=== PATIENT | male | born 1965 | race Two or more races ===

== ENCOUNTER 2024-05-31 09:06 | Emergency (ER) | payer OTHER, SELFPAY ==
[2024-05-31 09:25] VITALS: BP 166/85; PULSE 97; RESP 16; TEMP 36.6; O2SAT 100
[2024-05-31 10:04] VITALS: BP 148/80; PULSE 90; RESP 16; TEMP 36.6; O2SAT 100
--- NOTE | 2024-05-31 10:39 | ED.SKABFB ---
HPI - Skin/Abscess/Foreign Bdy General Chief complaint: Skin/Abscess/Foreign Body Stated complaint: groin abscess Time Seen by Provider: 05/31/24 09:54 Source: patient Mode of arrival: ambulatory Limitations: no limitations History of Present Illness HPI narrative: Patient is a 58-year-old male who presents the ED with report report of an abscess to his left groin. Patient reports he noticed an area of swelling and irritation to his left inguinal region around 1 week ago. States it has continued to increase in size and become more tender. He has history of a similar abscess in his right groin several years ago which required surgery. Patient is a diabetic. Does not routinely check his blood sugars. Denies any fevers, chills, testicular pain or swelling, penile drainage. Related Data Allergies Allergy/AdvReac Type Severity Reaction Status Date / Time No Known Allergies Allergy Verified 05/31/24 09:08 Review of Systems Review of Systems: All systems reviewed & are unremarkable except as noted in HPI. All systems reviewed & are unremarkable except as noted in HPI and below Exam Narrative: GENERAL: Well appearing, obese with BMI of 34.9, non-toxic, in no acute distress. HEAD: Normocephalic, atraumatic. RESPIRATORY: Airway patent, respirations nonlabored. CARDIOVASCULAR: Regular rate and rhythm MUSCULOSKELETAL: Moves all extremities. No gross deformities. SKIN: Warm, dry, normal color. Focal circumcised area of induration and skin inflammation to mid left inguinal region. There is central fluctuance that is very easily palpable. Focal tenderness to palpation. No surrounding erythema extending into the perineal region. No swelling or erythema of scrotum. Normal palpation of femoral artery, several cm above abscessed region. NEURO: A&O X3. Speech clear. No ataxic movements. PSYCHIATRIC: Appropriate mood and affect. Normal interaction. Course Vital Signs Vital signs: Vital Signs Temperature 97.9 F 05/31/24 09:25 Pulse Rate 97 05/31/24 09:25 Respiratory Rate 16 05/31/24 09:25 Blood Pressure 166/85 H 05/31/24 09:25 Pulse Oximetry 100 05/31/24 09:25 Temperature 97.8 F 05/31/24 10:04 Pulse Rate 92 05/31/24 11:39 Respiratory Rate 18 05/31/24 11:39 Blood Pressure 145/78 H 05/31/24 11:39 Pulse Oximetry 100 05/31/24 11:39 Procedures Abscess I/D other: Date of Incision: 05/31/24 Time of Incision: 12:05 Side (if applicable): left (inguinal region) Sedation/analgesia: none Local Anesthetic: lidocaine 1% Amount of anesthesia used (mL): 5 Technique: incised with #11 blade and probed loculations Amount of fluid expressed (mL): 10 Irrigation: Yes Packing used?: plain I&D Results: Pus and Blood Complications: other (none) MDM - Skin/Abscess/Foreign Bdy MDM Narrative Medical decision making narrative: Exam consistent with focal abscess to left inguinal region. Bedside US utilized by myself to visualize large subq fluid collection. I&D performed in the ED. Packing was placed. Wound culture obtained and sent. Patient tolerated procedure well. Started on Bactrim. Laboratory studies were obtained and without leukocytosis. He does have hyperglycemia on BMP. Patient is a known diabetic. On metformin. States he does not routinely check his sugars. There is no evidence of DKA at this time. Was advised to follow closely with PCP for further blood sugar management. Discussed further wound care and management of abscess. Discussed packing instructions. Discussed return precautions. Patient in agreement with plan. Discharged in stable condition. Medical Records Attestation: I reviewed the patient's medical records. Lab Data Attestation: I reviewed the patient's lab results. 05/31/24 10:40 05/31/24 10:40 Labs: Lab Results 05/31/24 Range/Units 10:40 WBC 8.0 (4.5-10.0) K/mm3 RBC 4.29 L (4.6-6.20) M/mm3 Hgb 13.7 L (14.0-18.0) g/dL Hct 39.5 L (42.0-52.0) % MCV 92.1 (80-100) fl MCH 31.9 (26-34) pg MCHC 34.7 (32-36) g/dl RDW 13.1 (11.5-14.5) % Plt Count 236 (150-375) k/mm3 MPV 11.5 H (7.4-10.4) fl Immature Gran % (Auto) 0.2 (0-0.5) % Neut % (Auto) 67.2 (45.5-73.1) % Lymph % (Auto) 26.7 (18.3-44.2) % [place] % (Auto) 4.1 (2.6-8.5) % Eos % (Auto) 1.2 (0-4.4) % Baso % (Auto) 0.6 (0.2-1.2) % Lymph # (Auto) 2.14 (0.9-3.2) K/mm3 [place] # (Auto) 0.3 (0.1-0.6) K/mm3 Eos # (Auto) 0.1 (0-0.3) K/mm3 Baso # (Auto) 0.1 (0.0-0.1) K/mm3 Abs Immat Gran (auto) 0.02 (0.00-0.031) K/mm3 Absolute Neuts (auto) 5.4 (1.3-6.7) K/mm3 Absolute Nucleated RBC 0.000 (0.0-0.012) K/mm3 Nucleated RBC % 0.0 (0.0-0.2) % Sodium 141 (137-145) mmol/L Potassium 4.2 (3.4-5.0) mmol/L Chloride 103 (98-107) mmol/L Carbon Dioxide 27 (22-30) mmol/L Anion Gap 11 (4-12) mmol/L BUN 12 (9-20) mg/dL Creatinine 0.51 L (0.7-1.3) mg/dL Estim Creat Clear Calc 150 ml/min Estimated GFR > 60 (59 - ) Glucose 350 H (65-110) mg/dL Calcium 8.8 (8.4-10.2) mg/dL Discharge Plan Discharge Clinical Impression: Abscess of left groin, Diabetes mellitus with hyperglycemia Patient Disposition: Home, Self-Care Condition: Stable Instructions: Antibiotic Form, Abscess (ED), Abscess Incision and Drainage (DC), Type 2 Diabetes Management for Adults (ED) Additional Instructions: Allow packing to fall out on its own over the next couple of days. If it does not fall out in 3 days, you may remove this yourself by gently pulling on the tail string. Take antibiotics as prescribed. Follow-up with primary care doctor for further evaluation and continued management of your diabetes. Continue your home metformin. Return to the ED if you experience worsening or severe symptoms, recurrent abscess formation, unable to keep down food or drink, persistent fevers, or any other symptoms of concern. Patient Language: Icelandic Prescriptions: New sulfamethoxazole-trimethoprim [Bactrim DS] 800-160 mg tablet 1 tablet PO Q12H 7 Days Qty: 14 0RF Follow-up/Referrals: Micah Fall MD [Physician] - (PRIMARY CARE) UNKNOWN,DOCTOR [Primary Care Provider] - Stand Alone Forms: Work/School Release IP Time of Disposition: 12:19
[2024-05-31 10:44] LABS: Basophils Absolute Auto 0.1 K/mm3 (0.0-0.1); Basophils Percent Auto 0.6 % (0.2-1.2); Eosinophils Absolute Auto 0.1 K/mm3 (0-0.3); Eosinophils Percent Auto 1.2 % (0-4.4); Hematocrit 39.5 % (42.0-52.0); Hemoglobin 13.7 g/dL (14.0-18.0); Immature Granulocyte Absolute 0.02 K/mm3 (0.00-0.031); Immature Granulocyte Percent A 0.2 % (0-0.5); Lymphocytes Absolute Auto 2.14 K/mm3 (0.9-3.2); Lymphocytes Percent Auto 26.7 % (18.3-44.2); Mean Corpuscular HGB Conc 34.7 g/dl (32-36); Mean Corpuscular Hemoglobin 31.9 pg (26-34); Mean Corpuscular Volume 92.1 fl (80-100); Mean Platelet Volume 11.5 fl (7.4-10.4); Monocytes Absolute Auto 0.3 K/mm3 (0.1-0.6); Monocytes Percent Auto 4.1 % (2.6-8.5); Neutrophils Absolute Auto 5.4 K/mm3 (1.3-6.7); Neutrophils Percent Auto 67.2 % (45.5-73.1); Platelet Count Result 236 k/mm3 (150-375); Red Blood Count 4.29 M/mm3 (4.6-6.20); Red Cell Distribution Width 13.1 % (11.5-14.5)
[2024-05-31 10:56] LABS: Anion Gap 11 mmol/L (4-12); Blood Urea Nitrogen 12 mg/dL (9-20); Calcium 8.8 mg/dL (8.4-10.2); Carbon Dioxide 27 mmol/L (22-30); Chloride 103 mmol/L (98-107); Estimated CRCL calculation 150 ml/min; Estimated Glomerular Filt Rate > 60; Glucose 350 mg/dL (65-110); Potassium 4.2 mmol/L (3.4-5.0); Sodium 141 mmol/L (137-145)
[2024-05-31] MEDS: SULFAMETHOXAZOLE/TRIMETHOPRIM 800/160 MG DS TABLET 1 TAB PO (11:37)
[2024-05-31 11:39] VITALS: BP 145/78; PULSE 92; RESP 18; O2SAT 100
[2024-05-31 12:31] VITALS: BP 145/78; PULSE 92; RESP 18; O2SAT 100
== END 2024-05-31 12:33 | disposition home or self-care (01) ==
PROVIDERS: Emergency Provider Physician Assistant
DX: L02.214 Cutaneous abscess of groin (principal); E11.65 Type 2 diabetes mellitus with hyperglycemia
CPT/HCPCS: 10061; 36415; 80048; 85025; 99283; A9270

== ENCOUNTER 2024-11-01 08:52 | Outpatient (CLI) | payer OTHER, SELFPAY ==
--- NOTE | 2024-11-01 11:58 | WPDSIXMINUTE ---
Six Minute Walk Procedure Procedure Performed Pulmonary Stress Test (6 min walk) Six Minute Walk Six Minute Walk: This is a 6 minute walk test. The test was performed and interpreted in accordance with the 2014 ERS/ATS task force guidelines. Findings: The patient's resting room air oxygen saturation measured by pulse oximetry was 95%, the heart rate was 91 bpm, and the modified Talia dyspnea score was 0. Patient ambulated for 366 meters and oxygen saturation remained 93 to 96%. At the end of the study the heart rate was 119 bpm and the modified Talia dyspnea score was 0. The patient did not qualify for supplemental oxygen at rest or with ambulation. There are no prior studies for comparison.
--- NOTE | 2024-11-01 11:59 | WPDPFTINT ---
PFT Procedure Performed PFT Procedure Performed Spirometry with Pre/Post Bronchodilator Plethysmography (Lung Vol) Diffusing Cap (DLCO) Flow Vol Loop PFT Interpretation This is a pulmonary function test with pre and post-bronchodilator spirometry, plethysmography and diffusing capacity. The test was performed and results interpreted in accordance with the 2019 and 2005 ATS/ERS Task Force guidelines respectively using the Global Lung Function Initiative-2012 reference equations. Patient demonstrated good effort and cooperation. Reproducibility criteria were met. The quality of the pre bronchodilator spirometry maneuver was Grade B and post bronchodilator spirometry maneuver was Grade B. Findings: Spirometry: There is decreased maximal expiratory airflow at all lung volumes. The contour the inspiratory flow tracing is normal. The pre bronchodilator FVC is 2.87 L, 69% predicted. The pre bronchodilator FEV1 is 1.99 L, 62% predicted. The pre bronchodilator FEV1: FVC ratio 70%. The post bronchodilator FVC is 3.42 L, representing a 19% increase. The post bronchodilator FEV1 is 1.77 L, representing an 11% decrease. The post bronchodilator FEV1: FVC ratio is 52%. Plethysmography: The total lung capacity is 7.39 L, 116% predicted. The functional residual capacity is 3.88 L, 118% predicted. The residual volume is 3.80 L, 181% predicted. The residual volume: Total lung capacity ratio is 51%. Diffusing capacity: The diffusing capacity unadjusted for hemoglobin and carboxyhemoglobin is 21.4, 79% predicted. The diffusing capacity adjusted for alveolar volume is 4.23, 96% predicted. Impression: There is a moderate obstructive abnormality. There is significant improvement after inhaling a single dose of albuterol. The increase in residual volume to total lung volume ratio is consistent with hyperinflation from an obstructive abnormality. The diffusing capacity is normal. There are no prior studies for comparison
== END 2024-11-01 08:53 | disposition home or self-care (01) ==
PROVIDERS: PCP Internal Medicine; Visit Provider Nurse Practitioner Family
DX: R05.9 Cough, unspecified (principal); R94.2 Abnormal results of pulmonary function studies
CPT/HCPCS: 94060; 94618; 94726; 94729